=== PATIENT | female | born 1965 | race Caucasian/White ===

== ENCOUNTER 2020-10-02 07:51 | Outpatient (RCR) | payer MEDICARE, MEDICAID, SELFPAY ==
[2020-10-02 08:12] VITALS: BP 101/54; PULSE 49; TEMP 35.6; BMI 11.2
--- NOTE | 2020-10-02 08:51 | HP.PCM_ITS ---
(1) Puncture wound of left calf Status: Acute Code(s): S81.832A - Puncture wound without foreign body, left lower leg, initial encounter (2) Hypoglycemia Status: Chronic Code(s): E16.2 - Hypoglycemia, unspecified (3) Anorexia Status: Chronic Code(s): R63.0 - Anorexia (4) History of migraine headaches Status: Chronic Code(s): Z86.69 - Personal history of other diseases of the nervous system and sense organs (5) Severely underweight adult Status: Chronic Code(s): R63.6 - Underweight History of Present Illness Date of Service: 10/02/20 Chief Complaint: Puncture wound of the left calf History of Wound: This is a 55-year-old female who presents with a puncture wound to the left calf. The wound occurred approximately 2 weeks prior to her presentation. It was the result of the impact against a car door. The injury was initially treated by the patient herself. Approximately 5 days following her injury, she was seen in the urgent care center, where doxycycline was prescribed. At the time, there was considerable redness and erythema about the wound. She has since completed the course of oral doxycycline. The patient indicates that the redness and erythema has largely abated. In addition, the status of the wound has also improved. She has been using Neosporin ointment topically. She denies a history of chronic swelling in her lower extremities. Past Medical History Past Medical History: Chronic Problems Hypoglycemia (Chronic) Anorexia (Chronic) History of migraine headaches (Chronic) Severely underweight adult (Chronic) Past Medical History: Patient's history is negative for myocardial infarction, congestive heart failure, diabetes mellitus, hypertension, cerebrovascular accident, renal disease, pulmonary disease, hyperlipidemia, and thyroid disease. The patient does have a history of migraine headaches. She suffers from anorexia nervosa, and has recently been discharged from an inpatient care facility for treatment of this affliction. Surgical History: no surgical history, - - The patient is a Ab0 Home Medications: Ambulatory Orders Medication Instructions Recorded Imitrex PRN 10/02/20 Mag Oxide/D3/Turmeric Rt Xt DAILY 10/02/20 Prozac 20 DAILY 10/02/20 Vit D3/Vit K2/Calc Frutoborate DAILY 10/02/20 - Family History Paternal - - Patient's father at the age of 88 with a history of deep vein thrombosis and lower extremity blood clotting issues. Patient's mother at age of 74 with a history of diabetes mellitus. Social History: The patient is unemployed, on disability due to her anorexia nervosa. Lives: Alone Tobacco Use: Non-smoker Alcohol: None Drugs: None Review of Systems Constitutional: Reports: Anorexia Eyes: Denies: Pain, Vision Change HEENT: Denies: Difficulty Hearing, Difficulty Swallowing, Sinus Congestion Cardiovascular: Denies: Chest Pain, Palpitations Respiratory: Denies: Cough, Shortness of Breath Gastrointestinal: Denies: Diarrhea, Nausea, Vomiting Genitourinary: Denies: Dysuria, Hematuria Endocrine: Denies: Heat/ Cold Intolerance, Polydipsia, Polyuria Hematologic/ Lymphatic: Denies: Easy Bruising, Easy Bleeding - Physical Exam Vital Signs Temp Pulse BP 96.0 F L 49 L 101/54 L 10/02/20 08:12 10/02/20 08:12 10/02/20 08:12 General: Alert, Oriented x3, Cooperative, No apparent distress, - - The patient is exceedingly thin. HEENT: Atraumatic, PERRLA, EOMI, Normocephalic Oral: Moist Mucosa Neck: No JVD Lungs: Normal air movement Abdomen: Non-Distended Extremities: No clubbing, No cyanosis, No edema, No Calf Tenderness, - - The traumatic wound is noted on the left lateral calf. There is minimal erythema and redness. There is no obvious sign of infection or cellulitis. Dimensions are documented elsewhere. There is a moderate amount of bioburden. Skin: No rashes Wound Measurements and Assessment WC - Nurse 1 - General Ulcer Measurement Start: 10/02/20 08:11 Freq: Status: Active Protocol: Activity Type Activity Date Activity User E-Sign Co-Sign Detail Recorded Client Recorded Date Recorded By Document 10/02/20 08:12 KR [id number] 10/02/20 08:28 ALEXYS 10/02/20 08:12 Wound Center Nurse 1 [Ulcer Assessment] #1 Left Woods -Current Size (cm) - Length 2.6 -Current Size (cm) - Width 0.5 -Current Size (cm) - Depth 0.1 -Total Square Cm 1.30 -Exudate Amt Small -Exudate Type Serosanguineous -Wound Margin Distinct, Outline Attached -Granulation Amt Medium (34-66%) -Granulation Quality Red -Necrosis Amt Medium (34-66%) -Necrotic Tissue Type Adherent Slough -Texture (Pema-wound Skin Appearance) Assessed, Scarring -Moisture (Pema-wound Skin Appearance No Abnormality, ) Assessed -Color (Pema-wound Skin Appearance) No Abnormality, Assessed -Temperature (Pema-wound Skin No Abnormality Appearance) (Pt Warm) -Ulcer Cleansing Rinsed/ Irrigated with Saline -Foul Odor after Cleansing No -Anesthetic Used 4% Lidocaine Solution [Edema Assessment] -Right Calf (cm) 17 -Right Ankle (cm) 25 -Left Calf (cm) 18 -Left Ankle (cm) 25 Musculoskeletal: Cachexia Neurological: Cranial nerves II-XII grossly intact, Neuro grossly intact Psych/Mental Status: Normal Affect, Appropriate, Alert and oriented to time, place, person, mood and affect Debridement Note Laterality: Left - Lateral calf Type of Debridement: Excisional debridement Anesthesia Used: 5% Lidocaine Gel, Cetacaine Depth: Down to and including healthy tissue, in the subcutaneous layer Percentage of wound debrided: 100 Instrument Used: 5mm curette Tissue Removed: Bioburden Severity: Fat Layer Exposed Amount of bleeding with debridement: Mild Bleeding Controlled with: Compression and gauze Patient tolerated procedure well Assessment/Plan Assessment: This is a 55-year-old female with anorexia nervosa. She sustained a puncture injury to the left lateral calf approximately 2 weeks prior to her presentation, due to the with a car door. After approximately 5 days of self- care, she was seen in a local urgent care center, and prescribed an oral course of doxycycline, which has now been completed. Plan: Patient has been instructed to assure adequate nutritional intake. He has been explained that appropriate nutrition will be required to expedite wound healing. We are to implement the use of collagen hydrogel topically, which will be applied by the patient on a daily basis. She has been instructed in the appropriate means of application. We are to see the patient in follow-up in 1 week. Because of the relatively small and superficial nature of her wound, we will forego laboratory testing and arterial assessment of the lower extremities at this time, though these diagnostic modalities may be considered if wound healing does not progress as expected. Influenza vaccine was not administered today. The patient is not a smoker. Patient stands 5 feet 7 inches tall. She weighs 72 pounds. Her BMI is 11.2. She is known to have a history of anorexia nervosa, which accounts for her thin body habitus and exceedingly low BMI. Total time: 46 minutes.
== END 2020-10-10 23:59 ==
LOC: WC 07:51
PROVIDERS: PCP Internal Medicine Endocrinology, Diabetes & Metabolism; Visit Provider Surgery
DX: S81.832A Puncture wound without foreign body, left lower leg, initial encounter (principal); E16.2 Hypoglycemia, unspecified; R63.0 Anorexia; R63.6 Underweight; Z86.69 Personal history of other diseases of the nervous system and sense organs; Z68.1 Body mass index [BMI] 19.9 or less, adult; Z56.0 Unemployment, unspecified; Z79.899 Other long term (current) drug therapy; Z83.3 Family history of diabetes mellitus
CPT/HCPCS: 11042; 99213; G0463